=== PATIENT | female | born 1985 | race Caucasian/White ===

== ENCOUNTER 2017-06-24 16:03 | Inpatient (IN) | payer OTHER ==
[2017-06-24] MEDS: NS 0.9% 1000 ML* 1,000 ML IV ONE ×2 (17:57→20:58)
[2017-06-24 18:01] LABS: ABS Basophils 0 10^3/ul (0-0.2); ABS Eosinophils 0 10^3/ul (0-0.6); ABS Lymphocytes 1.4 10^3/ul (1.0-4.8); ABS Monocytes 1.1 10^3/ul (0-0.8); ABS Neutrophils 10.3 10^3/ul (1.5-7.7); ABS Nucleated RBC 0 10^3/ul; Eosinophil % 0 % (0-6); Hematocrit 41 % (35-47); Hemoglobin 13.8 g/dl (12.0-16.0); Mean Corpuscular HGB Conc 34 g/dl (31-36); Mean Corpuscular Hemoglobin 32 pg (27-31); Mean Corpuscular Volume 92 fL (80-97); Mean Platelet Volume 9.5 um3 (7.4-10.4); Nucleated Red Blood Cells % 0; Platelet Count 170 10^3/ul (150-450); Red Blood Count 4.39 10^6/ul (4.0-5.4); Red Cell Distribution Width 13 % (10.5-15); White Blood Count 12.9 10^3/ul (3.5-10.8)
[2017-06-24 18:05] LABS: Urine Appearance Clear; Urine Blood 1+ (Negative); Urine Color Yellow; Urine Ketones Trace (Negative); Urine Protein Negative (Negative); Urine Specific Gravity 1.012 (1.010-1.030); Urine Urobilinogen Negative (Negative)
[2017-06-24 18:09] LABS: INR 1.22 (0.77-1.02)
[2017-06-24] MEDS ORDERED: Iohexol 300* (CONTRAST) 10 ML SDV IV ONE (19:20)
[2017-06-24] MEDS ORDERED: Piperacillin/Tazobac ADVAN(*) 3.375 GM in NS 0.9% 100 ML* 100 ML IVPB ONE ×2 (19:55→20:44)
--- NOTE | 2017-06-24 19:59 | RAD ---
INDICATION: Abdominal pain, cramping, blood in stool. COMPARISON: No relevant prior exams available on the [facility] PACS for comparison. TECHNIQUE: Multidetector CT images were obtained from the lung bases to the ischial tuberosities with 69 mL Omnipaque 300 IV and oral contrast. Multiplanar reformation. REPORT: Unremarkable visualized inferior thorax. The liver, gallbladder, pancreas, and spleen are unremarkable. Negative for CT abnormality of the upper GI, small bowel, or appendix. The appendix is most conspicuous on coronal reformatted images 23-29 of 73. Enteric contrast extends to the distal sigmoid colon. Mild diverticulosis of the sigmoid colon. Mild mural thickening of the mid sigmoid colon with perienteric inflammatory change. A few punctate foci of free air or cephalad to the mid sigmoid colon most conspicuous on coronal reformatted images 33-36 of 73. Small volume of nonloculated pelvic fluid. No loculated abscess collection evident. Normal adrenal glands. Unremarkable kidneys with symmetric nephrograms and pyelograms. Unremarkable nondilated ureters and largely decompressed urinary bladder. Unremarkable anteverted uterus and adnexal regions. Negative for lymphadenopathy. Normal diameter abdominal aorta and iliac arteries. Physiologic distention of the IVC. Negative for suspicious osseous lesions. Small bone island at the RIGHT femoral head. IMPRESSION: 1. Normal appendix documented. 2. The constellation of findings is most consistent with acute diverticulitis of the mid sigmoid colon. Evidence for microperforation with few foci of perienteric free air. No loculated pelvic abscess evident. Small volume of free pelvic fluid. Follow-up after therapy warranted to assess for resolution and exclude a colonic neoplasm. Results discussed with Dr. Huang 06/24/2017 7:54 PM EDT
[2017-06-24] MEDS ORDERED: Ondansetron INJ* 2 MG/ML VIAL IV ONE (20:11)
[2017-06-24] MEDS ORDERED: Morphine INJ* 10 MG/ML 1 ML CARPUJECT IV ONE (20:11)
[2017-06-24] MEDS ORDERED: Morphine VIAL* 4 MG/ML VIAL (1 ml vial) IV ONE (20:14)
--- NOTE | 2017-06-24 20:23 | ED ---
Willie Sheets Elizabeth, scribed for Vincenzo Huang on 06/24/17 at 1741 . Abdominal Pain/Female - HPI Summary HPI Summary: This patient is a 32 year old F presenting to [facility] with a chief complaint of abd pain since 1 day ago. The patient rates the pain 5/10 in severity. Symptoms aggravated by nothing. Symptoms alleviated by nothing. Patient reports nausea and bloody diarrhea. Patient denies vomiting, vaginal discharge or vaginal bleeding. - History of Current Complaint Chief Complaint: EDAbdPain Stated Complaint: ABD PAIN Time Seen by Provider: 06/24/17 17:14 Hx Obtained From: Patient Onset/Duration: Lasting Days - began 1 day ago, Still Present Timing: Constant Severity Initially: Mild Severity Currently: Mild Pain Intensity: 5 Pain Scale Used: 0-10 Numeric Location: Discrete At: RLQ Aggravating Factor(s): Nothing Alleviating Factor(s): Nothing Associated Signs and Symptoms: Positive: Blood in Stool, Decreased Appetite, Diarrhea. Negative: Vaginal Bleeding, Vaginal Discharge, Vomiting Allergies/Adverse Reactions: Allergies Allergy/AdvReac Type Severity Reaction Status Date / Time No Known Allergies Allergy Verified 06/24/17 16:26 Home Medications: Home Medications Calcium Carbonate [Calcium] 500 mg PO DAILY 06/24/17 [History Confirmed 06/24/17 ] Cyanocobalamin TAB* [Vitamin B12 TAB*] 500 mcg PO DAILY 06/24/17 [History Confirmed 06/24/17] Multivitamin [Multivitamins] 1 cap PO DAILY 06/24/17 [History Confirmed 06/24/17 ] PMH/Surg Hx/FS Hx/Imm Hx Opthamlomology History: Denies: Hx Legally Blind EENT History: Denies: Hx Deafness Infectious Disease History: No Infectious Disease History: Denies: Traveled Outside the [place] in Last 30 Days - Family History Known Family History: Positive: None - Social History Alcohol Use: None Substance Use Type: Reports: None Smoking Status (MU): Never Smoked Tobacco Review of Systems Negative: Fever Negative: Epistaxis Positive: Abdominal Pain, Diarrhea. Negative: Vomiting Genitourinary: Other - NEGATIVE VAGINAL BLEEDING Negative: discharge All Other Systems Reviewed And Are Negative: Yes Physical Exam - Summary Physical Exam Summary: Appearance: Well appearing, no pain distress Skin: warm, dry, reflects adequate perfusion Head/face: normal Eyes: EOMI, BRIDGETTE ENT: normal Neck: supple, non-tender Respiratory: CTA, breath sounds present Cardiovascular: RRR, pulses symmetrical Abdomen: RLQ tenderness, soft Bowel: present Musculoskeletal: normal, strength/ROM intact Neuro: normal, sensory motor intact, A&Ox3 Triage Information Reviewed: Yes Vital Signs On Initial Exam: Initial Vitals Temp Pulse Resp BP Pulse Ox 98.1 F 110 16 92/72 99 06/24/17 16:23 06/24/17 16:23 06/24/17 16:23 06/24/17 16:23 06/24/17 16:23 Vital Signs Reviewed: Yes Diagnostics - Vital Signs Vital Signs Temp Pulse Resp BP Pulse Ox 06/24/17 16:23 98.1 F 110 16 92/72 99 - Laboratory Lab Results: Lab Results 06/24/17 06/24/17 06/24/17 Range/Units 17:45 17:45 17:45 WBC 12.9 H (3.5-10.8) 10^3/ul RBC 4.39 (4.0-5.4) 10^6/ul Hgb 13.8 (12.0-16.0) g/dl Hct 41 (35-47) % MCV 92 (80-97) fL MCH 32 H (27-31) pg MCHC 34 (31-36) g/dl RDW 13 (10.5-15) % Plt Count 170 (150-450) 10^3/ul MPV 9.5 (7.4-10.4) um3 Neut % (Auto) 80.4 (38-83) % Lymph % (Auto) 11.0 L (25-47) % Ford % (Auto) 8.3 H (0-7) % Eos % (Auto) 0 (0-6) % Baso % (Auto) 0.3 (0-2) % Absolute Neuts (auto) 10.3 H (1.5-7.7) 10^3/ul Absolute Lymphs (auto) 1.4 (1.0-4.8) 10^3/ul Absolute Monos (auto) 1.1 H (0-0.8) 10^3/ul Absolute Eos (auto) 0 (0-0.6) 10^3/ul Absolute Basos (auto) 0 (0-0.2) 10^3/ul Absolute Nucleated RBC 0 10^3/ul Nucleated RBC % 0 INR (Anticoag Therapy) 1.22 H (0.77-1.02) APTT 32.1 (26.0-36.3) seconds Sodium 134 L (139-145) mmol/L Potassium 3.7 (3.5-5.0) mmol/L Chloride 101 (101-111) mmol/L Carbon Dioxide 25 (22-32) mmol/L Anion Gap 8 (2-11) mmol/L BUN 9 (6-24) mg/dL Creatinine 0.73 (0.51-0.95) mg/dL Est GFR ( Amer) 119.6 (>60) Est GFR (Non-Af Amer) 93.0 (>60) BUN/Creatinine Ratio 12.3 (8-20) Glucose 95 (70-100) mg/dL Lactic Acid (0.5-2.0) mmol/L Calcium 9.3 (8.6-10.3) mg/dL Total Bilirubin 0.90 (0.2-1.0) mg/dL AST 14 (13-39) U/L ALT 11 (7-52) U/L Alkaline Phosphatase 38 (34-104) U/L Total Protein 7.5 (6.4-8.9) g/dL Albumin 4.1 (3.2-5.2) g/dL Globulin 3.4 (2-4) g/dL Albumin/Globulin Ratio 1.2 (1-3) Lipase 19 (11.0-82.0) U/L Beta HCG, Quant < 0.60 mIU/mL Urine Color Urine Appearance Urine pH (5-9) Ur Specific [place] (1.010-1.030) Urine Protein (Negative) Urine Ketones (Negative) Urine Blood (Negative) Urine Nitrate (Negative) Urine Bilirubin (Negative) Urine Urobilinogen (Negative) Ur Leukocyte Esterase (Negative) Urine WBC (Auto) (Absent) Urine RBC (Auto) (Absent) Ur Squamous Epith Cells (Absent) Urine Bacteria (Absent) Urine Glucose (Negative) 06/24/17 06/24/17 Range/Units 17:45 17:45 WBC (3.5-10.8) 10^3/ul RBC (4.0-5.4) 10^6/ul Hgb (12.0-16.0) g/dl Hct (35-47) % MCV (80-97) fL MCH (27-31) pg MCHC (31-36) g/dl RDW (10.5-15) % Plt Count (150-450) 10^3/ul MPV (7.4-10.4) um3 Neut % (Auto) (38-83) % Lymph % (Auto) (25-47) % Ford % (Auto) (0-7) % Eos % (Auto) (0-6) % Baso % (Auto) (0-2) % Absolute Neuts (auto) (1.5-7.7) 10^3/ul Absolute Lymphs (auto) (1.0-4.8) 10^3/ul Absolute Monos (auto) (0-0.8) 10^3/ul Absolute Eos (auto) (0-0.6) 10^3/ul Absolute Basos (auto) (0-0.2) 10^3/ul Absolute Nucleated RBC 10^3/ul Nucleated RBC % INR (Anticoag Therapy) (0.77-1.02) APTT (26.0-36.3) seconds Sodium (139-145) mmol/L Potassium (3.5-5.0) mmol/L Chloride (101-111) mmol/L Carbon Dioxide (22-32) mmol/L Anion Gap (2-11) mmol/L BUN (6-24) mg/dL Creatinine (0.51-0.95) mg/dL Est GFR ( Amer) (>60) Est GFR (Non-Af Amer) (>60) BUN/Creatinine Ratio (8-20) Glucose (70-100) mg/dL Lactic Acid 0.7 (0.5-2.0) mmol/L Calcium (8.6-10.3) mg/dL Total Bilirubin (0.2-1.0) mg/dL AST (13-39) U/L ALT (7-52) U/L Alkaline Phosphatase (34-104) U/L Total Protein (6.4-8.9) g/dL Albumin (3.2-5.2) g/dL Globulin (2-4) g/dL Albumin/Globulin Ratio (1-3) Lipase (11.0-82.0) U/L Beta HCG, Quant mIU/mL Urine Color Yellow Urine Appearance Clear Urine pH 7.0 (5-9) Ur Specific [place] 1.012 (1.010-1.030) Urine Protein Negative (Negative) Urine Ketones Trace A (Negative) Urine Blood 1+ A (Negative) Urine Nitrate Negative (Negative) Urine Bilirubin Negative (Negative) Urine Urobilinogen Negative (Negative) Ur Leukocyte Esterase Negative (Negative) Urine WBC (Auto) Trace(0-5/hpf) (Absent) Urine RBC (Auto) Absent (Absent) Ur Squamous Epith Cells Present A (Absent) Urine Bacteria 1+ A (Absent) Urine Glucose Negative (Negative) Result Diagrams: 06/24/17 17:45 06/24/17 17:45 Lab Statement: Any lab studies that have been ordered have been reviewed, and results considered in the medical decision making process. - CT Chest/Abd/Pelvis CT CT Interpretation: Positive (See Comments) - IMPRESSION: 1. Normal appendix documented. 2. The constellation of findings is most consistent with acute diverticulitis of the mid sigmoid colon. Evidence for microperforation with few foci of perienteric free air. No loculated pelvic abscess evident. Small volume of free pelvic fluid. Follow-up after therapy warranted to assess for resolution and exclude a colonic neoplasm. Dr. Gamboa has reviewed this report. CT Interpretation Completed By: Radiologist Re-Evaluation - Re-Evaluation First Re-eval Re-Evaluation Time: 19:58 Change: Unchanged Comment: Discussed imaging, lab results, and course of treatment with patient. Abdominal Pain Fem Course/Dx - Course Course Of Treatment: This patient is a 32 year old F presenting to [facility] with a chief complaint of abd pain since 1 day ago. We discussed patient care with Dr Esposito and they recommended admitting the patient. Dr. Cuauhtemoc Zazueta, GI surgeon, was also consulted. Patient will be admitted to [facility] with diagnosis of acute diverticulitis. The patient is agreeable with this plan. - Diagnoses Differential Diagnosis: Positive: Appendicitis, Constipation, Diverticulitis, Ovarian Cyst, Pancreatitis, Renal Colic, Urinary Tract Infection Provider Diagnoses: Acute diverticulitis - Provider Notifications Discussed Care Of Patient With: Vishnu Esposito Instructed by Provider To: Other - Dr. Esposito recommended admit as inpatient. Dr. Cuauhtemoc Zazueta, GI surgeon, was also consulted. Discharge - Sign-Out/Discharge Documenting (check all that apply): Discharge/Admit/Transfer - Discharge Plan Condition: Stable Disposition: ADMITTED TO [facility] Referrals: [facility] - Stephon WEAVER [Primary Care Provider] - - Billing Disposition and Condition Condition: STABLE Disposition: HOSP-[facility] The documentation as recorded by the Willie pierre Elizabeth accurately reflects the service I personally performed and the decisions made by Reina espana Emmanuel.
[2017-06-24] MEDS ORDERED: Ondansetron ODT TAB* 4 MG PO PRN (20:44)
[2017-06-24] MEDS ORDERED: NS 0.9% 1000 ML* 1,000 ML IV ONE ×2 (20:44→23:55)
[2017-06-24] MEDS ORDERED: Acetaminophen TAB* 325 MG PO PRN (20:44)
[2017-06-24] MEDS ORDERED: Morphine VIAL* 4 MG/ML VIAL (1 ml vial) IV PRN (20:44)
[2017-06-24] MEDS ORDERED: Ondansetron INJ* 2 MG/ML VIAL IV PRN (20:44)
[2017-06-24] MEDS ORDERED: Zosyn per Pharmacy* NOTE FOLLOW UP SCH (21:00)
--- NOTE | 2017-06-24 22:46 | HP ---
CC: Dr. Goldman; Dr. Zazueta * HISTORY AND PHYSICAL: DATE OF ADMISSION: 06/24/17 PRIMARY CARE PROVIDER: Dr. Goldman ATTENDING PHYSICIAN WHILE IN THE HOSPITAL: Vishnu Esposito MD * (report dictated by Tish Poe NP) CHIEF COMPLAINT: 1. Abdominal pain. 2. Diarrhea. HISTORY OF PRESENT ILLNESS: Mrs. Iniguez is a 32-year-old female patient who previously was healthy, comes into our ER today stating that the last week she has been having some intermittent abdominal discomfort, cramping. She has been having diarrhea. She thought may be she picked up a GI bug. She had really severe pain in the last 24 hours, mostly in the lower abdomen just below her navel. This just has not been getting any better. It has been getting progressively worse. It has been waxing and waning, just not feeling better with this. She felt that she should get checked out because it was pretty severe for her. She says some of the most severe pain she has ever had. It was in her belly and really did not have an appetite. She thought may be she was getting a more severe GI bug. So, she actually went to [facility] as her significant other is a grad student there and that the [facility] had sent her over to ED. The discomfort was concerning with a temperature of 99.2 over at [facility]. So, the patient was transferred to the ER for further evaluation. She denied having any vomiting. She says that her appetite has been down. There has been no real fevers greater than 100. She denied having any chest pain or shortness of breath and she said she has felt nauseous. Evaluated in the ED, it was found that she had what appeared to be diverticulitis with microperforation. PAST MEDICAL HISTORY: Denied. PAST SURGICAL HISTORY: Denied. HOME MEDICATIONS: Include: 1. Multivitamin 1 tablet daily. 2. B12 500 mcg daily. 3. Calcium carbonate 500 mg daily. ALLERGIES TO MEDICATIONS: No known drug allergies. FAMILY HISTORY: She says her mother is healthy. Father had a history of [place]. There has been no reports of colon cancers. SOCIAL HISTORY: She does not smoke. Does not drink. Surrogate decision maker is her . REVIEW OF SYSTEMS: There is no documented fever. She denied any significant weight change. There was no double vision. She denies having any ear discharge. There is no rhinorrhea. No sore throat. No thyroid enlargement. She denies having any chest pain. There was no orthopnea. There is no nocturnal dyspnea. There is abdominal pain from HPI. There was nausea, but no vomiting. No dysuria. No frequency. No seizure. No loss of consciousness. No pruritus, no skin ulceration. Review of 14 systems completed, all others negative. PHYSICAL EXAMINATION GENERAL: At this time, Mrs. Iniguez is a 32-year-old female patient. She is sitting in the ED stretcher. She does not appear to be in acute distress. She appears to be well nourished, well developed. VITAL SIGNS: Blood pressure 114/69, pulse 93, respirations 15, O2 sat 99%, temperature 98.1. HEENT: Head: Atraumatic, normocephalic. Eyes: EOMs are intact. Sclerae are anicteric and not pale. Throat: Oral mucosa appears to be moist. No oropharyngeal erythema. NECK: Supple. LUNGS: Clear to auscultation bilaterally. No wheezes, rales, or rhonchi. HEART: Sounds S1, S2. Regular rate and rhythm. No murmurs, rubs, or gallops. ABDOMEN: Soft. It was flat. It was nondistended. There was tenderness in the left lower quadrant and the right lower quadrant. Bowel sounds were present. EXTREMITIES: Pulses are 2+ throughout. She had no peripheral edema. She is moving all 4 extremities with 5/5 strength. NEUROLOGIC: The patient is awake. She is alert. She is oriented x3. Tongue midline. Hand Almond Blancher were equal. No gross focal deficits. SKIN: Grossly intact. DIAGNOSTIC STUDIES/LAB DATA: WBC 12.9, RBC of 4.39, hemoglobin of 13.8, hematocrit of 41, platelet count of 170. INR 1.22. PTT of 32.1. Sodium was 134, potassium is 3.7, chloride of 101, bicarb was 25, BUN 9, creatinine of 0.73 , glucose 95, lactate 0.7, calcium 9.3. Total bili 0.9, AST 14, ALT 11, alk phos 35. Albumin 4.1. Lipase was negative. Beta HCG was negative. Urine showed trace ketones, 1+ blood, 1+ bacteria. She had abdominal and pelvis CT done today, impression: Showed normal appendix documented, constellation of findings most consistent with acute diverticulitis to the mid sigmoid colon, evidence of microperforation with few foci of perienteric free air. No loculated pelvic abscess evidenced. Small volume of free pelvic fluid. Follow up after therapy, wanted to assess resolution and to exclude any colonic neoplasm. Old medical records were reviewed. ASSESSMENT AND PLAN: Mrs. Iniguez is a 32-year-old female patient coming into the emergency department with complaints of abdominal discomfort. On evaluation , she was found to have diverticulitis. She will be admitted under inpatient status for: 1. Diverticulitis. At this point, I did touch base with Dr. Zazueta. She does have a microperforation. The plan will be for conservative therapy, n.p.o. , Zosyn, IV fluids. I am going to give her another liter of fluids here in the ED. I would recommend getting a set of blood cultures as she does have elevated white count and she was tachy. She did have a lactic, which was normal and we will hydrate her. We will follow. Dr. Zazueta will continue to follow in addition to this in the outpatient setting. She will certainly need probably followup with GI and endoscopy at some point for further evaluation once she is over with this acute illness. 2. DVT prophylaxis. She is low risk. We will place her on SCDs. 3. Code status. Full code. 4. Fluids, electrolytes, and nutrition. N.p.o., normal saline at 125 an hour and then we will try to advance her diet tomorrow depending on how she is doing. TIME SPENT: Time spent on the admission was 60 minutes; greater than half of the time spent [id number] with the patient obtaining my history and physical; other half of the time spent going over the plan of care with the patient and implementing plan of care. I did discuss the plan of care with my attending, Dr. Esposito, he is in agreement. TISH POE NP [id number]/[facility] #: [id number] MTDJerry
[2017-06-25] MEDS: Piperacillin/Tazobactam 13.5 GM IV 24 hour continuous infusion IVPB SCH ×2 (00:34)
[2017-06-25] MEDS: NS 0.9% 1000 ML* 1,000 ML IV SCH ×2 (01:04→11:25)
[2017-06-25] MEDS: Morphine VIAL* 4 MG/ML VIAL (1 ml vial) IV PRN ×2 (02:32→06:56)
[2017-06-25] MEDS ORDERED: NS 0.9% 1000 ML* 1,000 ML IV SCH (03:45)
[2017-06-25 05:37] LABS: ABS Basophils 0 10^3/ul (0-0.2); ABS Eosinophils 0 10^3/ul (0-0.6); ABS Monocytes 0.6 10^3/ul (0-0.8); ABS Neutrophils 8.4 10^3/ul (1.5-7.7); ABS Nucleated RBC 0 10^3/ul; Eosinophil % 0 % (0-6); Hematocrit 34 % (35-47); Hemoglobin 11.5 g/dl (12.0-16.0); Lymphocyte % 10.1 % (25-47); Mean Corpuscular HGB Conc 34 g/dl (31-36); Mean Corpuscular Hemoglobin 32 pg (27-31); Mean Corpuscular Volume 93 fL (80-97); Mean Platelet Volume 9.7 um3 (7.4-10.4); Nucleated Red Blood Cells % 0; Platelet Count 129 10^3/ul (150-450); Red Blood Count 3.61 10^6/ul (4.0-5.4); Red Cell Distribution Width 12 % (10.5-15); White Blood Count 10.1 10^3/ul (3.5-10.8)
[2017-06-25 05:57] LABS: EGFR Non-African American 104.5 (>60)
[2017-06-25 06:01] LABS: INR 1.38 (0.77-1.02)
--- NOTE | 2017-06-25 07:49 | PN ---
Subjective Date of Service: 06/25/17 Interval History: Ms. Iniguez states that she continues to have lower abdominal pain this morning. She has noted a couple of drops of blood in her stool yesterday. She has not had a bowel movement today. She denies chest pain or SOB. She is hungry and hoping for sips of clears. Objective Active Medications: Acetaminophen (Tylenol Tab*) 650 mg PO Q4H PRN Sodium Chloride (Ns 0.9% 1000 Ml*) 1,000 mls @ 125 mls/hr IV PER RATE MARBIN Piperacillin Sod/Tazobactam (Sod 13.5 gm/ Sodium Chloride) 500 mls @ 20.833 mls /hr IVPB Q24H MARBIN Morphine Sulfate (Morphine Vial*) 2 mg IV Q2H PRN Ondansetron HCl (Zofran Odt Tab*) 4 mg PO Q6H PRN Pharmacy Consult (Zosyn Per Pharmacy*) 1 note FOLLOW UP .ZOSYN PER PHARMACY [facility] Vital Signs: Temp Pulse Resp BP Pulse Ox 98.6 F 100 18 93/51 97 06/25/17 04:58 06/25/17 04:58 06/25/17 06:59 06/25/17 04:58 06/25/17 04:58 Oxygen Devices in Use Now: None Appearance: Female lying in bed in NAD Eyes: No Scleral Icterus Ears/Nose/Mouth/Throat: Mucous Membranes Moist Neck: Trachea Midline Respiratory: Symmetrical Chest Expansion and Respiratory Effort, Clear to Auscultation Cardiovascular: NL Sounds; No Murmurs; No JVD, No Edema Abdominal: - - Soft, tender to palpation in lower abdomen, no rebound, BS+ Lymphatic: No Cervical Adenopathy Extremities: No Edema Skin: No Rash or Ulcers Neurological: Alert and Oriented x 3, NL Muscle Strength and Tone Result Diagrams: 06/25/17 05:05 06/25/17 05:05 Additional Lab and Data: Vital Signs: Temp Pulse Resp BP Pulse Ox 98.6 F 100 18 93/51 97 06/25/17 04:58 06/25/17 04:58 06/25/17 06:59 06/25/17 04:58 06/25/17 04:58 Assess/Plan/Problems-Billing Assessment: Ms. Iniguez is a 32 yo female with no significant PMH who was admitted on with diverticulitis with microperforation. - Patient Problems (1) Diverticulitis Comment: - Afebrile, HR 100, SBP 90s, plan for additional 1L IVF bolus now. - With microperforation noted on CT abd/pelvis. - Appreciate surgery consultion. - Continue zosyn, pain meds prn. (2) DVT prophylaxis Comment: - SCDs. (3) Full code status Comment: Status and Disposition: Inpatient. Anticipate discharge to home when medically stable.
[2017-06-25] MEDS ORDERED: NS 0.9% 1000 ML* 1,000 ML IV ONE (07:53)
--- NOTE | 2017-06-25 12:34 | CONS ---
CC: [facility] * CONSULTATION REPORT: DATE OF CONSULT: 06/25/17 REFERRING PROVIDER: Sp Poe NP REASON FOR CONSULT: Left lower quadrant abdominal pain. HISTORY OF PRESENT ILLNESS: Ms. Juliette Iniguez is a very healthy and pleasant 32 - year-old woman who presented to the emergency room later on the day yesterday with complaints of left and suprapubic abdominal pain that had been present over the last several days, but worse in the last 24 to 36 hours. She states that three weeks ago she was visiting [place] and had 24 hours of GI viral illness with some diarrhea and crampy abdominal pain. This has completely resolved. On Monday of this past week she developed some kind of mid to lower abdominal pain discomfort and had several loose bowel movements a day, but had been eating well without fever or significant discomfort and the pain became worse and more constant in the left lower quadrant on Monday evening. She initially went to the [facility] yesterday and they referred her to the emergency room. She states that she has had no blood per rectum. She has had no urinary complaints. Her menstrual periods have been fairly regular and without significant change. She has had no fever, shakes, or chills and has had no back discomfort. While in the emergency room, she was noted to be slightly tachycardic with the heart rate of 110. [place] [id number] without left shift. Her lactic acid was normal and her beta hCG was negative. Urinalysis showed 1+ bacteria and 1+ blood. She underwent CAT scan of the abdomen and pelvis. I did review these images. The study shows clearly a normal appendix with contrast and air within the lumen and no surrounding inflammation. There is small amount of prepelvic fluid and some minor diverticular disease in the sigmoid colon with some thickening of the sigmoid colon and a few small bubbles of extraluminal air without abscess. Contrast does go all the way down to the mid sigmoid and the small bowel is fairly clearly evaluated without evidence of wall thickening or abnormality. The findings on the CAT scan were felt to represent diverticulitis with a small localized perforation without abscess. She has been admitted to the hospitalist service and was started on IV antibiotics and surgical consultation was obtained. PAST MEDICAL HISTORY: Unremarkable. PAST SURGICAL HISTORY: None. MEDICATIONS: 1. Multivitamins. 2. Vitamin B12. ALLERGIES: She has no known drug allergies. FAMILY HISTORY: No history of colorectal cancer. SOCIAL HISTORY: She does not smoke. She drinks alcohol on a very rare social basis. There is no illicit drug abuse. She is and has no children. REVIEW OF SYSTEMS: Cerebrovascular: She has had no dizziness or visual disturbance. Cardiovascular: No chest pain or shortness of breath. Pulmonary : No wheezing or hemoptysis. GI: As per above. : There has been no urgency , hematuria. PHYSICAL EXAM: Temperature 98.6, pulse 100, blood pressure 93/51, respirations 17. In general, she is a slender well-developed, well-nourished woman, appears to be in no apparent distress, quite alert, conversive and very pleasant. Her lungs were clear to auscultation with normal respiratory effort. Heart with a regular rate and rhythm without murmurs, rubs, or gallops. Her abdomen is soft and nondistended. She has normoactive bowel sounds throughout. There are no prior surgical incisions. There are no hernias noted. She has some tenderness with some mild guarding in the left lower quadrant in suprapubic area. There is no mass noted. She has no peritoneal irritation anywhere in the abdomen. Extremities show no cyanosis or edema. DIAGNOSTIC STUDIES/LAB DATA: Laboratory workup was as above. IMPRESSION: Left lower quadrant abdominal pain with mild leukocytosis and tachycardia. She has had some abdominal pain that has been present over the past 4 to 5 days associated with some looser bowel movements and pain that has worsened over the past 36 hours. CAT scan of the abdomen and pelvis shows a normal appendix and essentially normal small bowel and the findings are more conclusive for a diverticulitis with localized with a small perforation with some extraluminal air. To my view, this air may well be within the sigmoid colon mesentery. There is no abscess or remote free air and there is a small amount of free pelvic fluid. I had a long discussion with her regarding these findings. She is at early age obviously for development of acute diverticulitis and in this situation I think we have to be careful not to completely rule out any other etiology for her discomfort. The appendix appears to be unremarkable. I see no abnormality in the small bowel, however. She does have the mild tachycardia and her white blood cell count today is normal. She has had no fever and does not meet sepsis criteria. In addition, she does not have generalized abdominal peritonitis and she is feeling somewhat better now after admission and is being on IV antibiotics. At this point, I would recommend continue with the IV antibiotics with close observation and serial physical examinations as needed. I suspect this is acute diverticulitis per the above reasoning and that this will respond nicely to IV antibiotics with subsequent oral antibiotics and she will require post hospital followup most likely including a colonoscopy for complete evaluation and to rule out other colonic abnormality. I discussed the fact with her that if she does not improve, develops worsening pain, persistent or elevated white blood cell count, this may require laparoscopy and/or laparotomy. In addition, it is also possible to have to repeat CT scans in the next several days if she is not improving to rule out abscess, which maybe percutaneously drained. For now, we will follow her closely with you. Thank you very much for this consultation. [id number]/[facility] #: [id number] JACQUELINE
[2017-06-26] MEDS: Piperacillin/Tazobactam 13.5 GM IV 24 hour continuous infusion IVPB SCH ×2 (00:40)
[2017-06-26] MEDS: Morphine VIAL* 4 MG/ML VIAL (1 ml vial) IV PRN (01:08)
--- NOTE | 2017-06-26 07:34 | PN ---
Subjective Date of Service: 06/26/17 Interval History: Ms. Iniguez reports feeling a bit better today but continues to have some lower abdominal pain. She has had some nausea with sips of clears but no vomiting. She has had a couple of small BMs She denies chest pain or SOB. Objective Active Medications: Acetaminophen (Tylenol Tab*) 650 mg PO Q4H PRN Piperacillin Sod/Tazobactam (Sod 13.5 gm/ Sodium Chloride) 500 mls @ 20.833 mls /hr IVPB Q24H [facility] Morphine Sulfate (Morphine Vial*) 2 mg IV Q2H PRN Ondansetron HCl (Zofran Odt Tab*) 4 mg PO Q6H PRN Pharmacy Consult (Zosyn Per Pharmacy*) 1 note FOLLOW UP .ZOSYN PER PHARMACY [facility] Vital Signs: Temp Pulse Resp BP Pulse Ox 98.1 F 85 16 91/59 96 06/26/17 03:16 06/26/17 03:16 06/26/17 02:25 06/26/17 03:16 06/26/17 03:16 Oxygen Devices in Use Now: None Appearance: Female lying in bed in NAD Eyes: No Scleral Icterus Ears/Nose/Mouth/Throat: Mucous Membranes Moist Neck: Trachea Midline Respiratory: Symmetrical Chest Expansion and Respiratory Effort, Clear to Auscultation Cardiovascular: NL Sounds; No Murmurs; No JVD, No Edema Abdominal: - - Soft, minimal tenderness to palpation in lower abdomen, BS+ Extremities: No Edema Skin: No Rash or Ulcers Neurological: Alert and Oriented x 3, NL Muscle Strength and Tone Nutrition: Taking PO's Result Diagrams: 06/25/17 05:05 06/25/17 05:05 Additional Lab and Data: . Microbiology and Other Data: . Assess/Plan/Problems-Billing Assessment: Ms. Iniguez is a 32 yo female with no significant PMH who was admitted on with diverticulitis with microperforation. - Patient Problems (1) Diverticulitis Comment: - Improving slowly. Advance diet to full liquids in AM if feeling ok. - With microperforation noted on CT abd/pelvis. - Appreciate surgery consultion. - Continue zosyn, pain meds prn. (2) DVT prophylaxis Comment: - SCDs. (3) Full code status Comment: Status and Disposition: Inpatient. Anticipate discharge to home when medically stable.
--- NOTE | 2017-06-26 09:30 | PN ---
Progress Note - Progress Note Date of Service: 06/26/17 SOAP: Subjective:Hospital day #2 diverticulitis with small perf minimal pain,no nausea or vomiting,hungry but feels full with sips of clears, passing small flatus and had two loose stools;up walking but tires easily [] Objective:afeb,VSS;Abd:+bs,loud;nondistended,soft;mild generalized tenderness L abd and most tender suprapubic region,no guarding [] Assessment:stable;diverticulitis with small perf [] Plan:continue IV antibiotics;sips of clears;will follow []
[2017-06-27] MEDS: Piperacillin/Tazobactam 13.5 GM IV 24 hour continuous infusion IVPB SCH ×2 (00:41)
--- NOTE | 2017-06-27 12:52 | PN ---
Progress Note - Progress Note Date of Service: 06/27/17 SOAP: Subjective: Feeling better today-less pain, tolerating clear liquids, having some loose BM's Ambulating in the halls Objective: Afebrile for 24 hours Temp Pulse Resp BP Pulse Ox 97.8 F 53 16 120/87 100 06/27/17 11:32 06/27/17 11:32 06/27/17 11:32 06/27/17 11:32 06/27/17 11:32 Intake & Output 06/25/17 06/26/17 06/27/17 06/28/17 06:59 06:59 06:59 06:59 Intake Total 4085 3820 1046 225 Output Total 750 2300 4800 Balance 3335 1520 -3754 225 Weight 115 lb 9 oz Intake: IV Fluids 4085 3480 496 ABX - ZOSYN 500 496 NS (0.9%) 2985 2980 Oral 0 340 550 225 Output: Urine 750 2300 4800 Other: Date of Last Bowel 06/25/17 06/27/17 Movement # Bowel Movements 1 1 Estimated Stool Amount Medium Small PEX: Comfortable Abd is soft and non-distended. Bowel sounds are present. Mild tenderness in LLQ without mass, rebound or guarding. Assessment: Sigmoid diverticulitis with small perforation-continuing to improve Plan: Advance diet to fulls IV abx Nutrition consult re low residue diet If continues to improve, OK for d/c tomorrow on oral antibiotics Will need outpatient colonoscopy in 6-8 weeks. Discussed with patient and her at bedside.
--- NOTE | 2017-06-27 14:01 | PN ---
Subjective Date of Service: 06/27/17 Interval History: Patient complains of loose stools and moderate pain in abdomen with no change in character. Patient was able to tolerate some full liquids but was still easily satiated. Patient thinks she should wait until tomorrow to advance diet further. Patient denies F/C, N/V, CP, SOB, Dysuria, or other pain. Family History: Unchanged from Admission Social History: Unchanged from Admission Past Medical History: Unchanged from Admission Objective Active Medications: Acetaminophen (Tylenol Tab*) 650 mg PO Q4H PRN PRN Reason: FEVER/PAIN Piperacillin Sod/Tazobactam (Sod 13.5 gm/ Sodium Chloride) 500 mls @ 20.833 mls /hr IVPB Q24H [facility] Last Admin: 06/27/17 00:41 Dose: 20.833 mls/hr Morphine Sulfate (Morphine Vial*) 2 mg IV Q2H PRN PRN Reason: PAIN - MILD Last Admin: 06/26/17 01:08 Dose: 2 mg Ondansetron HCl (Zofran Odt Tab*) 4 mg PO Q6H PRN PRN Reason: NAUSEA/VOMITING Pharmacy Consult (Zosyn Per Pharmacy*) 1 note FOLLOW UP .ZOSYN PER PHARMACY [facility] Vital Signs - 8 hr 06/27/17 06/27/17 06/27/17 07:20 07:30 09:04 Temperature 97.9 F Pulse Rate 75 Respiratory 16 17 Rate Blood Pressure 113/72 (mmHg) O2 Sat by Pulse 100 99 Oximetry 06/27/17 11:32 Temperature 97.8 F Pulse Rate 53 Respiratory 16 Rate Blood Pressure 120/87 (mmHg) O2 Sat by Pulse 100 Oximetry Oxygen Devices in Use Now: None Appearance: Patient is a 32yo female who appears stated age and is sitting in the bed in [facility]. Eyes: No Scleral Icterus, PERRLA Ears/Nose/Mouth/Throat: NL Teeth, Lips, Gums, Clear Oropharnyx, Mucous Membranes Moist Neck: NL Appearance and Movements; NL JVP, Trachea Midline Respiratory: Symmetrical Chest Expansion and Respiratory Effort, Clear to Auscultation Cardiovascular: NL Sounds; No Murmurs; No JVD, RRR, No Edema Abdominal: No Hepatosplenomegaly, - - Hyperactive BS, Tender to palpation on right side in upper and lower quadrants. Non-distended. Lymphatic: No Cervical Adenopathy Extremities: No Edema, No Clubbing, Cyanosis Skin: No Rash or Ulcers, No Nodules or Sclerosis Neurological: Alert and Oriented x 3, NL Sensation, NL Gait, NL Muscle Strength and Tone, - - CN II-XII intact. Result Diagrams: 06/25/17 05:05 06/25/17 05:05 Additional Lab and Data: . Microbiology and Other Data: . Assess/Plan/Problems-Billing Assessment: Ms. Iniguez is a 32 yo female with no significant PMH who was admitted on with diverticulitis with microperforation. - Patient Problems (1) Diverticulitis Current Visit: Yes Status: Acute Code(s): K57.92 - DVTRCLI OF INTEST, PART UNSP, W/O PERF OR ABSCESS W/O BLEED SNOMED Code(s): 592593051 Comment: Improving slowly. Tolerating Full liquids with early satiety. With microperforation noted on CT abd/pelvis. Appreciate surgery consultion. Continue zosyn, pain meds prn. Hpeful transition to Oral antibiotics tomorrow. Needs colonscopy outpatient. (2) Full code status Current Visit: Yes Status: Acute Code(s): Z78.9 - OTHER SPECIFIED HEALTH STATUS SNOMED Code(s): 627023343 Comment: (3) DVT prophylaxis Current Visit: Yes Status: Acute Code(s): BUE0973 - SNOMED Code(s): 528975817 Comment: SCDs and frequent ambulation. Status and Disposition: Inpatient. Anticipate discharge to home when medically stable.
[2017-06-27] MEDS: Lactobacillus Acidophilus* 1 TAB PO SCH (15:39)
[2017-06-28] MEDS: Piperacillin/Tazobactam 13.5 GM IV 24 hour continuous infusion IVPB SCH ×2 (01:02)
[2017-06-28 05:26] LABS: ABS Basophils 0 10^3/ul (0-0.2); ABS Eosinophils 0.1 10^3/ul (0-0.6); ABS Lymphocytes 1.8 10^3/ul (1.0-4.8); ABS Monocytes 0.4 10^3/ul (0-0.8); ABS Neutrophils 1.5 10^3/ul (1.5-7.7); ABS Nucleated RBC 0 10^3/ul; Eosinophil % 1.9 % (0-6); Hematocrit 34 % (35-47); Hemoglobin 12.1 g/dl (12.0-16.0); Lymphocyte % 48.3 % (25-47); Mean Corpuscular HGB Conc 35 g/dl (31-36); Mean Corpuscular Hemoglobin 32 pg (27-31); Mean Corpuscular Volume 92 fL (80-97); Mean Platelet Volume 9.4 um3 (7.4-10.4); Nucleated Red Blood Cells % 0; Platelet Count 174 10^3/ul (150-450); Red Blood Count 3.72 10^6/ul (4.0-5.4); Red Cell Distribution Width 12 % (10.5-15); White Blood Count 3.8 10^3/ul (3.5-10.8)
[2017-06-28 05:42] LABS: EGFR Non-African American 106.3 (>60)
--- NOTE | 2017-06-28 09:35 | PN ---
Progress Note - Progress Note Date of Service: 06/28/17 SOAP: Subjective:Hospital day#4 diverticulitis with perf feels better;falguni full liqs,no pain,no n/v,passing flatus [] Objective:afeb,VSS;abd:+bs,soft,nondistended and nontender throughout;large uo [] Assessment:doing well [] Plan:ok for discharge from Surgical standpoint she will schedule colonoscopy 6-8weeks (will be moving end of June) discussed diet and probiotics will need po antibiotics []
[2017-06-28] MEDS: Lactobacillus Acidophilus* 1 TAB PO SCH (09:55)
[2017-06-28] MEDS ORDERED: Amoxicillin/Clavulanate TAB* 875 MG PO SCH (10:00)
[2017-06-28 13:05] VITALS: BP 111/73
--- NOTE | 2017-06-30 05:30 | DS ---
CC: Dr. Goldman * DISCHARGE SUMMARY: DATE OF ADMISSION: 06/24/17 DATE OF DISCHARGE: 06/28/17 PRIMARY CARE PROVIDER: Dr. Goldman. MY ATTENDING WHILE IN THE HOSPITAL: Dr. Zain Hinojosa.* (DICTATED BY BETHANIE MILLER) PRIMARY DISCHARGE DIAGNOSIS: Diverticulitis with microperforation. SECONDARY DISCHARGE DIAGNOSIS: None. STUDIES DONE WHILE IN THE HOSPITAL: Abdomen and pelvis CT from 06/24/17 read as normal appendix documented with the constellation of findings most consistent with acute diverticulitis in the mid sigmoid colon, evidence for microperforation with a few foci of perienteric free air. No loculated pelvic abscess evidenced. Small volume of free pelvic fluid. Followup after therapy warranted to assess for resolution and exclude colonic neoplasm. MEDICATIONS AT DISCHARGE: 1. Vitamin B12, 500 mcg p.o. daily. 2. Multivitamin 1 cap p.o. daily. 3. Calcium carbonate 500 mg p.o. daily. 4. Tylenol 650 mg p.o. q.4 hours as needed. 5. Augmentin 750 mg p.o. q.8 hours for 7 days. 6. Lactobacillus acidophilus 1 tab p.o. daily. 7. Zofran 4 mg p.o. q.6 hours as needed. NEW MEDICATIONS AT DISCHARGE: 1. Tylenol. 2. Augmentin. 3. Lactobacillus. 4. Zofran. MEDICATIONS DISCONTINUED AT DISCHARGE: None. HOSPITAL COURSE: This is a brief summary of the patient's presentation. For more details, please see the history and physical from Sp Poe NP, on . In brief, the patient a 32-year-old female with past medical history significant for the above, who presents with severe intermittent abdominal discomfort with diarrhea. This pain was localized below her navel, was waxing and waning, the most severe pain she had ever had. The patient had a temperature of 99.2. No vomiting. Had abdomen and pelvis CT as above. The patient was seen in consultation by Dr. Cuauhtemoc Zazueta of General Surgery who recommended IV antibiotics, no surgery and diet as tolerated with possibility of followup imaging with no improvement. The patient is able to tolerate some sips of clears without vomiting. The patient had no other concerns. The patient had no documented adverse reaction to the Zosyn. The patient was able to advance her diet. The patient had no other complications. The patient's vitals signs stayed stable throughout her hospitalization with some initial hypotension, asymptomatic. No hypoxia, no elevated temperatures documented. The patient was able to tolerate a soft diet on her discharge. The patient took 1 dose of Augmentin without incident and was amendable to discharge to home on 06/28/17. PHYSICAL EXAMINATION ON THE DAY OF DISCHARGE: General: The patient is a 32- year- old female who appears stated age and sitting comfortably in bed in no acute distress. Vital Signs: At the time of discharge, temperature 98.9, pulse rate 71, respiratory rate 16, oxygen saturation 100% on room air, blood pressure 111/73. HEENT: Head normocephalic, atraumatic. Sclerae anicteric. No conjunctival injection. Nasal mucosa moist. Oral mucosa moist. No oropharyngeal erythema, discharge, or exudate. Neck: Supple, nontender. No lymphadenopathy. No carotid bruit auscultated, no JVD. Cardiac: Regular rate and rhythm. No clicks, murmurs, gallops, or rubs. Pulses 2+ in bilateral dorsalis pedis, posterior tibialis and radial areas. No bilateral lower extremity edema or calf tenderness. Respiratory: Clear to auscultation bilaterally. No wheezes, rales, or rhonchi. Good air exchange bilaterally. Abdomen: Soft. Slight tenderness to palpation in the right lower quadrant, improved from previous exam. Bowel sounds present and normoactive in all 4 quadrants. No hepatosplenomegaly. No abdominal bruits auscultated. Skin: Clean, dry, intact. No rash. Neuro: Cranial nerves II through XII intact. No focal deficits. Psychiatric: Very pleasant and cooperative. LABORATORY DATA: On the day of discharge: White blood cell count 3.8, hemoglobin 12.1, hematocrit 34, platelet count 174,000. Sodium 132, potassium 3.5, chloride 107, carbon dioxide 26, anion gap 9, BUN 3, glucose 87, calcium 8.5, creatinine 0.65. DISCHARGE PLAN: The patient will be discharged to home on Augmentin as above. The patient will follow up with a with a air hose coupler after she moves back to [place], which will happen soon, for a followup colonoscopy to exclude colonic neoplasm. The patient should return to hospital for uncontrolled fever , severe abdominal pain, chest pain, shortness of breath, or other alarming symptoms. The patient should take Zofran as needed for nausea. The patient should take her probiotics while she is taking her Augmentin. The patient is otherwise healthy. She engaged in activity as tolerated and has diet as tolerated. TIME SPENT: Approximately 60 minutes were spent on this discharge, 30 of which were spent [id number] with the patient, obtaining history and physical and discussing treatment plan. BETHANIE MILLER [id number]/[facility] #: [id number] JACQUELINE
== END 2017-06-28 13:20 | disposition home or self-care (01) | DRG 392 ==
LOC: ED 16:03 → SSU 20:28
PROVIDERS: ADMIT Hospitalist; ATTEND Student in an Organized Health Care Education/Training Program
DX: K57.20 Diverticulitis of large intestine with perforation and abscess without bleeding (principal); Z82.49 Family history of ischemic heart disease and other diseases of the circulatory system
CPT/HCPCS: 36415; 74177; 80048; 80053; 81003; 81015; 83605; 83690; 84702; 85025; 85610; 85730; 87040; 87086; 99284; A9270-GY; J2270; J2405; J2543; Q9967